=== PATIENT | female | born 1950 | race Caucasian/White ===

== ENCOUNTER → 2017-08-22 | Outpatient (CLI) | payer MEDICARE | LOC: M SLEEP 19:12 | DX: G47.30 Sleep apnea, unspecified (principal) | CPT/HCPCS: 95810 ==

== ENCOUNTER → 2017-09-18 | Outpatient (CLI) | payer MEDICARE | LOC: M SLEEP 19:19 | DX: G47.33 Obstructive sleep apnea (adult) (pediatric) (principal) | CPT/HCPCS: 95811 ==

== ENCOUNTER → 2020-10-30 | Outpatient (REF) | payer MEDICARE, MEDICAID ==
[~2020-10-30] MED LIST: ACET-683 PO; ATOR40TA75; BREO1INH3; BUSP15TA47; CALCTAB89 PO; CHLO125TA; CLAR10CA3 PO; COMBAER6; D-40TAB2 PO; ECOT81TA5 PO; ESSETAB4 PO; FARX1TAB3; FISH1000 PO; FURO40TA2; GLIM4TAB5; INCR1INH; LISI10TA22; MELA10CA6 PO; METF10004; OMEGCAP9 PO; OMEP-218; PRESCAP PO; SPIR-10; VITA100T59 PO
[2020-10-30 18:02] LABS: CREATININE, URINE < 13.0 MG/DL; MALB URINE SIEMENS < 5.0 MG/L
== END ==
LOC: M LAB REF 17:13
PROVIDERS: ATTEND Nurse Practitioner Family
DX: E11.65 Type 2 diabetes mellitus with hyperglycemia (principal)